=== PATIENT | female | born 1955 | race Asian ===

== ENCOUNTER 2018-10-17 09:55 | Inpatient (IN) | payer OTHER ==
[2018-10-17] VITALS (15 sets, daily range): BP systolic 100–133; BP diastolic 35–76; TEMP 98.8–100.1; Ht 162.6 cm; Wt 159.5 kg
[~2018-10-17] VITALS: Ht 162.6 cm; Wt 159.5 kg
[~2018-10-17 09:55] MED LIST: APAP325 MG PO; CLON1TAB18 PO; DICYCLOMINE HYD10 MG PO; DIVA500T2 PO; ELIQUIS5 MG PO; FERROUS SULF325 MG PO; FURO20TA67 PO; GABA300C2 PO; HYDROCHLOROT12.5 M1 PO; LIPITOR20 MG PO; LISI20TA11 PO; LORA0.5T17 PO; MACROBID100 MG PO; TRAZ50TA36 PO; ZIPR20CA PO; [UNRECOGNIZED DRUG - OTHER] PO
[2018-10-17] MEDS ORDERED: TYLENOL325 MG PO (18:39)
[2018-10-17] MEDS ORDERED: ABILIFY 10MG TAB PO (18:41)
[2018-10-17] MEDS ORDERED: CHOL100034 PO (18:41)
[2018-10-17] MEDS ORDERED: CLON1TAB18 PO (18:43)
[2018-10-17] MEDS ORDERED: DIVALPROEX500 MG PO (18:44)
[2018-10-17] MEDS ORDERED: DOCU100C10 PO (18:45)
[2018-10-17] MEDS ORDERED: GABA300C2 PO ×2 (18:46)
[2018-10-17] MEDS ORDERED: OLAN10INJ IM (18:48)
[2018-10-17] MEDS ORDERED: MAGNSUS68 PO (18:49)
[2018-10-18] VITALS (25 sets, daily range): BP systolic 98–163; BP diastolic 41–84; TEMP 98.1–99.6
[2018-10-18 06:58] LABS: POTASSIUM 4.4 mmol/L (3.6-5.2)
[2018-10-18 08:46] LABS: PLATELET COUNT 435 K/uL (152-353)
[2018-10-19] VITALS (13 sets, daily range): BP systolic 131–164; BP diastolic 59–93; TEMP 98–99.2
[2018-10-19] MEDS ORDERED: DEXAMETHASONE4 MG/M1 IV (16:27)
[2018-10-19] MEDS ORDERED: METH125I IV (16:29)
[2018-10-19] MEDS ORDERED: ZIPR80CA PO (16:30)
[2018-10-19] MEDS ORDERED: CEFT1INJ27 IVPB (16:33)
[2018-10-19] MEDS ORDERED: AZIT500I IVPB (16:34)
== END 2018-10-19 14:50 | disposition other institution (70) | DRG 871 ==
LOC: ICU 09:55
PROVIDERS: ADMIT Family Medicine
DX: A41.89 Other specified sepsis (principal); J18.8 Other pneumonia, unspecified organism; J96.01 Acute respiratory failure with hypoxia; I13.0 Hypertensive heart and chronic kidney disease with heart failure and stage 1 through stage 4 chronic kidney disease, or unspecified chronic kidney disease; N18.4 Chronic kidney disease, stage 4 (severe); N17.8 Other acute kidney failure; F20.89 Other schizophrenia; E46 Unspecified protein-calorie malnutrition; E86.0 Dehydration; E78.00 Pure hypercholesterolemia, unspecified; E66.01 Morbid (severe) obesity due to excess calories; G47.39 Other sleep apnea; M15.8 Other polyosteoarthritis
CPT/HCPCS: 36415; 36600; 80053; 81000; 82805; 83605; 83880; 85027; 85610; 87040; 87070; 87205; 93005; 94640; 94664; 94760; J0456; J0696; J1100; J1200; J1630; J2930